=== PATIENT | male | born 1995 | race Caucasian/White ===

== ENCOUNTER 2018-01-17 11:24 | Emergency (ER) | payer MEDICAID ==
[~2018-01-17] VITALS: Ht 172.7 cm; Wt 72.7 kg
[2018-01-17] MEDS ORDERED: KETOROLAC TROMETHAMINE 60 MG/2 ML VIAL IM ONE (13:00)
[2018-01-17] MEDS ORDERED: METHOCARBAMOL 500 MG TABLET PO ONE (13:00)
[2018-01-17 14:16] VITALS: BP 129/76
== END 2018-01-17 14:33 | disposition home or self-care (01) ==
LOC: EMS 11:28
DX: S46.912A Strain of unspecified muscle, fascia and tendon at shoulder and upper arm level, left arm, initial encounter (principal); X58.XXXA Exposure to other specified factors, initial encounter; Y93.89 Activity, other specified; Y92.89 Other specified places as the place of occurrence of the external cause; Y99.8 Other external cause status
CPT/HCPCS: 96372; 99283; J1885

== ENCOUNTER 2018-08-10 01:47 | Emergency (ER) | payer SELFPAY ==
[~2018-08-10] VITALS: Ht 175.3 cm; Wt 75.0 kg
[2018-08-10] MEDS ORDERED: LIDOCAINE/PF 1% 30 ML VIAL INJ ONE (03:30)
[2018-08-10] MEDS ORDERED: LIDOCAINE 1% 10 ML VIAL ONE (03:31)
[2018-08-10] MEDS ORDERED: POVIDONE-IODINE 10% 120 ML SOLUTION TP ONE (04:00)
[2018-08-10] MEDS ORDERED: LIDOCAINE 1% 10 ML VIAL INJ ONE (04:15)
[2018-08-10] MEDS ORDERED: BACITRACIN 0.9 GM PACKET OINTMENT TP ONE (04:45)
[2018-08-10] MEDS ORDERED: PERTUSS(ACELL),DIPH,TET VAC/PF 0.5 ML VIAL IM ONE (04:45)
[2018-08-10 05:11] VITALS: BP 122/76
== END 2018-08-10 05:13 | disposition home or self-care (01) ==
LOC: EMS 01:48
DX: S71.111A Laceration without foreign body, right thigh, initial encounter (principal); J45.909 Unspecified asthma, uncomplicated; W45.8XXA Other foreign body or object entering through skin, initial encounter; Y93.89 Activity, other specified; Y92.89 Other specified places as the place of occurrence of the external cause; Y99.8 Other external cause status
CPT/HCPCS: 12004; 73552; 90471; 90715; 99283; J3490

== ENCOUNTER 2018-08-21 10:14 | Emergency (ER) | payer SELFPAY ==
[~2018-08-21] VITALS: Ht 175.3 cm; Wt 75.0 kg
[2018-08-21 11:01] VITALS: BP 118/64
== END 2018-08-21 11:03 | disposition home or self-care (01) ==
LOC: EMS 10:14
DX: S71.111D Laceration without foreign body, right thigh, subsequent encounter (principal); J45.909 Unspecified asthma, uncomplicated; Z48.02 Encounter for removal of sutures; W26.0XXD Contact with knife, subsequent encounter

== ENCOUNTER 2020-12-14 00:25 | Emergency (ER) | payer SELFPAY ==
[~2020-12-14] VITALS: Ht 175.3 cm; Wt 75.0 kg
[2020-12-14 00:28] VITALS: BP 142/96
== END 2020-12-14 02:31 | disposition left against medical advice (07) ==
LOC: EMS 00:26
DX: K08.89 Other specified disorders of teeth and supporting structures (principal); Z53.21 Procedure and treatment not carried out due to patient leaving prior to being seen by health care provider